=== PATIENT | female | born 1940 | race Caucasian/White ===

== ENCOUNTER → 2016-08-03 12:06 | Outpatient (CLI) | payer MEDICARE, OTHER ==
[2016-08-03 12:48] LABS: BASOPHILS 0.7 % (0.0-2.0); EOSINOPHILS 0.2 % (0-7); HEMATOCRIT 36.1 % (36.0-48.0); HEMOGLOBIN 11.8 g/dL (12-16); LYMPHOCYTES 32.9 % (15-50); MCH 30.6 pg (26.0-34.0); MCHC 32.7 g/dL (31.0-37.0); MCV 93.8 fL (80.0-100.0); MEAN PLATELET VOLUME 9.6 fL (7.4-10.4); MONOCYTES 11.9 % (2-11); NEUTROPHILS 54.3 % (40-80); PLATELET COUNT 194 10x3/uL (130-400); RBC 3.85 10x6/uL (4.00-5.40); RDW 13.3 % (11.5-14.5); WBC 4.5 10x3/uL (4.8-10.8)
[2016-08-03 13:04] LABS: ALBUMIN 3.6 g/dL (3.4-5.0); ALKALINE PHOSPHATASE 99 U/L (46-116); ALT (SGPT) 23 U/L (10-68); BILIRUBIN - TOTAL 0.27 mg/dL (0.2-1.3); CALC OSMOLALITY 278 mosm/kg (275-300); CALCIUM 9.9 mg/dL (8.5-10.1); CARBON DIOXIDE 30.3 mmol/L (21.0-32.0); CHLORIDE - SERUM 102 mmol/L (98-107); CREATININE - SERUM 0.7 mg/dL (0.6-1.3); GLUCOSE 107 mg/dL (74-106); POTASSIUM - SERUM 3.9 mmol/L (3.5-5.1); PROTEIN - SERUM 6.8 g/dL (6.4-8.2); SODIUM 140 mmol/L (136-145); UREA NITROGEN 13 mg/dL (7-18); eGFR NON AFRICAN AMERICAN 86 mL/min (90-120)
== END | disposition home or self-care (01) ==
LOC: D.LAB 09:00
PROVIDERS: Internal Medicine Gastroenterology
DX: Z51.81 Encounter for therapeutic drug level monitoring (principal); Z79.899 Other long term (current) drug therapy; K51.90 Ulcerative colitis, unspecified, without complications

== ENCOUNTER → 2016-11-02 10:21 | Outpatient (CLI) | payer MEDICARE, OTHER ==
[2016-11-02 10:47] LABS: BASOPHILS 0.7 % (0-2); EOSINOPHILS 0.4 % (0-7); HEMATOCRIT 35.9 % (36.0-48.0); HEMOGLOBIN 11.7 g/dL (12-16); IMMATURE GRANULOCYTES 0.2 % (0-5); LYMPHOCYTES 25.6 % (15-50); MCHC 32.6 g/dL (31.0-37.0); MEAN PLATELET VOLUME 9.5 fL (7.4-10.4); MONOCYTES 11.1 % (2-11); PLATELET COUNT 189 10x3/uL (130-400); RBC 3.78 10x6/uL (4.00-5.40); RDW 13.7 % (11.5-14.5); WBC 5.4 10x3/uL (4.8-10.8)
[2016-11-02 11:07] LABS: ALBUMIN 3.6 g/dL (3.4-5.0); ANION GAP 14.2 mmol/L (8-16); BILIRUBIN - TOTAL 0.36 mg/dL (0.2-1.3); CALCIUM 9.2 mg/dL (8.5-10.1); CARBON DIOXIDE 27.4 mmol/L (21.0-32.0); CREATININE - SERUM 0.8 mg/dL (0.6-1.3); POTASSIUM - SERUM 4.6 mmol/L (3.5-5.1); PROTEIN - SERUM 6.6 g/dL (6.4-8.2)
== END | disposition home or self-care (01) ==
LOC: D.LAB 09:00
PROVIDERS: Internal Medicine Gastroenterology
DX: Z51.81 Encounter for therapeutic drug level monitoring (principal); Z79.899 Other long term (current) drug therapy; K51.90 Ulcerative colitis, unspecified, without complications

== ENCOUNTER → 2016-12-08 10:51 | Outpatient (CLI) | payer MEDICARE, OTHER ==
[2016-12-08 11:36] LABS: BASOPHILS 0.9 % (0-2); EOSINOPHILS 0.5 % (0-7); HEMATOCRIT 37.3 % (36.0-48.0); HEMOGLOBIN 12.4 g/dL (12-16); LYMPHOCYTES 26.3 % (15-50); MCH 31.3 pg (26.0-34.0); MCHC 33.2 g/dL (31.0-37.0); MCV 94.2 fL (80.0-100.0); MEAN PLATELET VOLUME 9.6 fL (7.4-10.4); MONOCYTES 11.4 % (2-11); NEUTROPHILS 60.9 % (40-80); PLATELET COUNT 217 10x3/uL (130-400); RBC 3.96 10x6/uL (4.00-5.40); RDW 13.3 % (11.5-14.5); WBC 4.3 10x3/uL (4.8-10.8)
== END | disposition home or self-care (01) ==
LOC: D.LAB 09:15
PROVIDERS: Internal Medicine Gastroenterology
DX: Z51.81 Encounter for therapeutic drug level monitoring (principal); Z79.899 Other long term (current) drug therapy; K51.90 Ulcerative colitis, unspecified, without complications

== ENCOUNTER → 2017-02-01 13:06 | Outpatient (CLI) | payer MEDICARE, OTHER ==
[2017-02-01 13:25] LABS: EOSINOPHILS 0.5 % (0-7); HEMATOCRIT 37.2 % (36.0-48.0); HEMOGLOBIN 12.5 g/dL (12-16); LYMPHOCYTES 33.4 % (15-50); MCH 31.3 pg (26.0-34.0); MCHC 33.6 g/dL (31.0-37.0); MEAN PLATELET VOLUME 9.6 fL (7.4-10.4); MONOCYTES 9.5 % (2-11); NEUTROPHILS 55.6 % (40-80); PLATELET COUNT 204 10x3/uL (130-400); RDW 13.1 % (11.5-14.5); WBC 4.1 10x3/uL (4.8-10.8)
[2017-02-01 14:03] LABS: ALBUMIN 3.9 g/dL (3.4-5.0); ALKALINE PHOSPHATASE 115 U/L (46-116); ALT (SGPT) 23 U/L (10-68); BILIRUBIN - TOTAL 0.33 mg/dL (0.2-1.3); CALC OSMOLALITY 277 mosm/kg (275-300); CALCIUM 9.2 mg/dL (8.5-10.1); CARBON DIOXIDE 29.6 mmol/L (21.0-32.0); CHLORIDE - SERUM 102 mmol/L (98-107); CREATININE - SERUM 0.7 mg/dL (0.6-1.3); GLUCOSE 101 mg/dL (74-106); PROTEIN - SERUM 6.8 g/dL (6.4-8.2); SODIUM 138 mmol/L (136-145); UREA NITROGEN 17 mg/dL (7-18); eGFR NON AFRICAN AMERICAN 86 mL/min (90-120)
== END | disposition home or self-care (01) ==
LOC: D.LAB 09:00
PROVIDERS: Internal Medicine Gastroenterology
DX: K51.90 Ulcerative colitis, unspecified, without complications (principal); Z79.899 Other long term (current) drug therapy

== ENCOUNTER → 2017-05-03 14:00 | Outpatient (CLI) | payer MEDICARE, OTHER ==
[2017-05-03 14:44] LABS: BASOPHILS 0.7 % (0-2); EOSINOPHILS 0.2 % (0-7); HEMATOCRIT 36.2 % (36.0-48.0); HEMOGLOBIN 12.1 g/dL (12-16); LYMPHOCYTES 33.6 % (15-50); MCH 31.4 pg (26.0-34.0); MCHC 33.4 g/dL (31.0-37.0); MEAN PLATELET VOLUME 9.6 fL (7.4-10.4); MONOCYTES 9.8 % (2-11); NEUTROPHILS 55.7 % (40-80); PLATELET COUNT 185 10x3/uL (130-400); RBC 3.85 10x6/uL (4.00-5.40); RDW 13.1 % (11.5-14.5); WBC 4.6 10x3/uL (4.8-10.8)
[2017-05-03 14:55] LABS: ALBUMIN 3.6 g/dL (3.4-5.0); ANION GAP 8.6 mmol/L (8-16); BILIRUBIN - TOTAL 0.23 mg/dL (0.2-1.3); CALCIUM 9.6 mg/dL (8.5-10.1); CARBON DIOXIDE 30.9 mmol/L (21.0-32.0); POTASSIUM - SERUM 4.5 mmol/L (3.5-5.1); PROTEIN - SERUM 6.7 g/dL (6.4-8.2)
== END | disposition home or self-care (01) ==
LOC: D.LAB 12-08 11:15
PROVIDERS: Internal Medicine Gastroenterology
DX: Z51.81 Encounter for therapeutic drug level monitoring (principal); Z79.899 Other long term (current) drug therapy; K51.90 Ulcerative colitis, unspecified, without complications

== ENCOUNTER → 2017-08-03 12:51 | Outpatient (CLI) | payer MEDICARE, OTHER ==
[2017-08-03 13:25] LABS: ALBUMIN 3.9 g/dL (3.4-5.0); ANION GAP 11.3 mmol/L (8-16); BILIRUBIN - TOTAL 0.3 mg/dL (0.2-1.3); CALCIUM 9.9 mg/dL (8.5-10.1); CARBON DIOXIDE 30.2 mmol/L (21.0-32.0); CREATININE - SERUM 0.8 mg/dL (0.6-1.3); HEMATOCRIT 35.1 % (36.0-48.0); LYMPHOCYTES 30.1 % (15-50); MCH 31.3 pg (26.0-34.0); MCHC 34.2 g/dL (31.0-37.0); MCV 91.4 fL (80.0-100.0); PLATELET COUNT 209 10x3/uL (130-400); POTASSIUM - SERUM 4.5 mmol/L (3.5-5.1); PROTEIN - SERUM 6.9 g/dL (6.4-8.2); RBC 3.84 10x6/uL (4.00-5.40); RDW 13.4 % (11.5-14.5); WBC 4.4 10x3/uL (4.8-10.8)
== END | disposition home or self-care (01) ==
LOC: D.LAB 12:51
PROVIDERS: Internal Medicine Gastroenterology
DX: K51.90 Ulcerative colitis, unspecified, without complications (principal); Z51.81 Encounter for therapeutic drug level monitoring; Z79.1 Long term (current) use of non-steroidal anti-inflammatories (NSAID)

== ENCOUNTER → 2017-11-01 12:30 | Outpatient (CLI) | payer MEDICARE, OTHER ==
[2017-11-01 12:49] LABS: BASOPHILS 0.6 % (0-2); EOSINOPHILS 0.2 % (0-7); HEMATOCRIT 36.6 % (36.0-48.0); HEMOGLOBIN 12.1 g/dL (12-16); IMMATURE GRANULOCYTES 0.2 % (0-5); LYMPHOCYTES 27.8 % (15-50); MCHC 33.1 g/dL (31.0-37.0); MCV 93.8 fL (80.0-100.0); MEAN PLATELET VOLUME 9.4 fL (7.4-10.4); NEUTROPHILS 57.2 % (40-80); PLATELET COUNT 208 10x3/uL (130-400); RDW 13.3 % (11.5-14.5); WBC 5.4 10x3/uL (4.8-10.8)
[2017-11-01 13:02] LABS: ALBUMIN 3.7 g/dL (3.4-5.0); ANION GAP 11.7 mmol/L (8-16); BILIRUBIN - TOTAL 0.3 mg/dL (0.2-1.3); CALCIUM 9.3 mg/dL (8.5-10.1); CARBON DIOXIDE 26.8 mmol/L (21.0-32.0); CREATININE - SERUM 0.8 mg/dL (0.6-1.3); POTASSIUM - SERUM 4.5 mmol/L (3.5-5.1)
== END | disposition home or self-care (01) ==
LOC: D.LAB 08-03 13:00
PROVIDERS: Internal Medicine Gastroenterology
DX: K51.90 Ulcerative colitis, unspecified, without complications (principal); Z51.81 Encounter for therapeutic drug level monitoring; Z79.1 Long term (current) use of non-steroidal anti-inflammatories (NSAID)

== ENCOUNTER → 2017-11-24 13:43 | Outpatient (CLI) | payer MEDICARE, OTHER ==
[2017-11-24 14:08] LABS: EOSINOPHILS 0.3 % (0-7); HEMATOCRIT 37.3 % (36.0-48.0); HEMOGLOBIN 12.6 g/dL (12-16); IMMATURE GRANULOCYTES 0.2 % (0-5); LYMPHOCYTES 27.8 % (15-50); MCH 31.3 pg (26.0-34.0); MCHC 33.8 g/dL (31.0-37.0); MCV 92.8 fL (80.0-100.0); MEAN PLATELET VOLUME 9.4 fL (7.4-10.4); NEUTROPHILS 56.7 % (40-80); PLATELET COUNT 229 10x3/uL (130-400); RBC 4.02 10x6/uL (4.00-5.40); RDW 13.2 % (11.5-14.5); WBC 5.8 10x3/uL (4.8-10.8)
== END | disposition home or self-care (01) ==
LOC: D.LAB 13:43
PROVIDERS: Internal Medicine Gastroenterology
DX: K51.90 Ulcerative colitis, unspecified, without complications (principal); Z51.81 Encounter for therapeutic drug level monitoring; Z79.899 Other long term (current) drug therapy

== ENCOUNTER → 2017-12-08 12:57 | Outpatient (CLI) | payer MEDICARE, OTHER ==
[2017-12-08 13:27] LABS: BASOPHILS 0.5 % (0-2); EOSINOPHILS 0 % (0-7); HEMATOCRIT 35.7 % (36.0-48.0); HEMOGLOBIN 11.7 g/dL (12-16); IMMATURE GRANULOCYTES 0.2 % (0-5); LYMPHOCYTES 23.8 % (15-50); MCH 31.2 pg (26.0-34.0); MCHC 32.8 g/dL (31.0-37.0); MCV 95.2 fL (80.0-100.0); MEAN PLATELET VOLUME 8.8 fL (7.4-10.4); MONOCYTES 7.6 % (2-11); NEUTROPHILS 67.9 % (40-80); PLATELET COUNT 203 10x3/uL (130-400); RBC 3.75 10x6/uL (4.00-5.40); RDW 12.8 % (11.5-14.5); WBC 5.6 10x3/uL (4.8-10.8)
== END | disposition home or self-care (01) ==
LOC: D.LAB 10:00
PROVIDERS: Internal Medicine Gastroenterology
DX: K51.90 Ulcerative colitis, unspecified, without complications (principal); Z51.81 Encounter for therapeutic drug level monitoring; Z79.899 Other long term (current) drug therapy

== ENCOUNTER → 2018-01-03 13:07 | Outpatient (CLI) | payer MEDICARE, OTHER ==
[2018-01-03 13:46] LABS: BASOPHILS 1.1 % (0-2); EOSINOPHILS 0.2 % (0-7); HEMOGLOBIN 11.7 g/dL (12-16); LYMPHOCYTES 27.8 % (15-50); MCH 31.7 pg (26.0-34.0); MCHC 33.4 g/dL (31.0-37.0); MCV 94.9 fL (80.0-100.0); MEAN PLATELET VOLUME 9.2 fL (7.4-10.4); NEUTROPHILS 60.9 % (40-80); PLATELET COUNT 201 10x3/uL (130-400); RBC 3.69 10x6/uL (4.00-5.40); RDW 13.6 % (11.5-14.5); WBC 4.7 10x3/uL (4.8-10.8)
== END | disposition home or self-care (01) ==
LOC: D.LAB 10:15
PROVIDERS: Internal Medicine Gastroenterology
DX: K51.90 Ulcerative colitis, unspecified, without complications (principal); Z51.81 Encounter for therapeutic drug level monitoring; Z79.899 Other long term (current) drug therapy

== ENCOUNTER → 2018-01-31 13:51 | Outpatient (CLI) | payer MEDICARE, OTHER ==
[~2018-01-31 13:51] MED LIST: BENADRYL25 MG PO; CALCIUM 600+D T1 TA1 PO; FOLIC ACID0.8 MG PO; GLUCOSAMINE & C1 CAP PO; MERCAPTOPURINE PO; NORCO 7.5/325 T1 TA1 PO; OMEPRAZOLE20 M1 PO; SULFAZINE EC500 MG PO; VITAMIN B-121000 MCG PO
[2018-01-31 14:48] LABS: BASOPHILS 0.7 % (0-2); EOSINOPHILS 0.5 % (0-7); HEMATOCRIT 34.8 % (36.0-48.0); HEMOGLOBIN 11.9 g/dL (12-16); LYMPHOCYTES 28.3 % (15-50); MCH 32.1 pg (26.0-34.0); MCHC 34.2 g/dL (31.0-37.0); MCV 93.8 fL (80.0-100.0); MEAN PLATELET VOLUME 9.4 fL (7.4-10.4); MONOCYTES 10.2 % (2-11); NEUTROPHILS 60.3 % (40-80); PLATELET COUNT 206 10x3/uL (130-400); RBC 3.71 10x6/uL (4.00-5.40); RDW 14.1 % (11.5-14.5); WBC 4.2 10x3/uL (4.8-10.8)
[2018-01-31 15:00] LABS: ALBUMIN 3.7 g/dL (3.4-5.0); ANION GAP 11.1 mmol/L (8-16); BILIRUBIN - TOTAL 0.33 mg/dL (0.2-1.3); CREATININE - SERUM 0.9 mg/dL (0.6-1.3); POTASSIUM - SERUM 4.1 mmol/L (3.5-5.1)
[2018-03-16 14:00] VITALS: BMI 25.6
== END | disposition home or self-care (01) ==
LOC: D.LAB 13:51
PROVIDERS: Internal Medicine Gastroenterology
DX: K51.90 Ulcerative colitis, unspecified, without complications (principal); Z51.81 Encounter for therapeutic drug level monitoring; Z79.1 Long term (current) use of non-steroidal anti-inflammatories (NSAID)

== ENCOUNTER → 2018-03-03 11:54 | Outpatient (CLI) | payer MEDICARE, OTHER ==
[2018-03-03 12:15] LABS: BASOPHILS 1.1 % (0-2); EOSINOPHILS 0.6 % (0-7); HEMATOCRIT 34.5 % (36.0-48.0); HEMOGLOBIN 11.8 g/dL (12-16); IMMATURE GRANULOCYTES 0.3 % (0-5); LYMPHOCYTES 29.8 % (15-50); MCH 32.4 pg (26.0-34.0); MCHC 34.2 g/dL (31.0-37.0); MCV 94.8 fL (80.0-100.0); MEAN PLATELET VOLUME 9.2 fL (7.4-10.4); NEUTROPHILS 57.2 % (40-80); PLATELET COUNT 216 10x3/uL (130-400); RBC 3.64 10x6/uL (4.00-5.40); RDW 14.4 % (11.5-14.5); WBC 3.6 10x3/uL (4.8-10.8)
[2018-03-16 14:00] VITALS: BMI 25.6
== END | disposition home or self-care (01) ==
LOC: D.LAB 11:00
PROVIDERS: Internal Medicine Gastroenterology
DX: K51.90 Ulcerative colitis, unspecified, without complications (principal); Z51.81 Encounter for therapeutic drug level monitoring; Z79.899 Other long term (current) drug therapy

== ENCOUNTER 2018-03-12 18:51 | Inpatient (IN) | payer MEDICARE, OTHER ==
[~2018-03-12] VITALS: Ht 167.6 cm; Wt 72.1 kg
[2018-03-12 20:00] VITALS: BP 197/87
[2018-03-12 20:10] LABS: BASOPHILS 0.4 % (0-2); EOSINOPHILS 0.1 % (0-7); HEMATOCRIT 34.2 % (36.0-48.0); HEMOGLOBIN 11.6 g/dL (12-16); IMMATURE GRANULOCYTES 0.3 % (0-5); LYMPHOCYTES 12.6 % (15-50); MCH 32.4 pg (26.0-34.0); MCHC 33.9 g/dL (31.0-37.0); MCV 95.5 fL (80.0-100.0); MEAN PLATELET VOLUME 9.3 fL (7.4-10.4); MONOCYTES 6.6 % (2-11); PLATELET COUNT 209 10x3/uL (130-400); RBC 3.58 10x6/uL (4.00-5.40); RDW 14.3 % (11.5-14.5); WBC 6.8 10x3/uL (4.8-10.8)
[2018-03-12 20:18] LABS: PROTIME 12.8 SECONDS (11.6-15.0)
[2018-03-12 20:27] LABS: ALBUMIN 3.9 g/dL (3.4-5.0); ANION GAP 8.7 mmol/L (8-16); BILIRUBIN - TOTAL 0.45 mg/dL (0.2-1.3); CALCIUM 9.4 mg/dL (8.5-10.1); CARBON DIOXIDE 29.4 mmol/L (21.0-32.0); CREATININE - SERUM 0.9 mg/dL (0.6-1.3); POTASSIUM - SERUM 4.1 mmol/L (3.5-5.1); PROTEIN - SERUM 6.8 g/dL (6.4-8.2)
[2018-03-12 21:00] VITALS: BP 178/77
[2018-03-12 21:41] LABS: APPEARANCE CLEAR (CLEAR); BILIRUBIN NEGATIVE (NEGATIVE); COLOR STRAW (YELLOW); GLUCOSE NEGATIVE (NEGATIVE); KETONE NEGATIVE (NEGATIVE); NITRITE NEGATIVE (NEGATIVE); PROTEIN NEGATIVE (NEGATIVE); UROBILINOGEN NORMAL (NORMAL)
[2018-03-12 22:00] VITALS: BP 113/53
[2018-03-12] MEDS ORDERED: SULFAZINE EC500 MG PO (23:00)
[2018-03-12] MEDS ORDERED: MERCAPTOPURINE PO (23:01)
[2018-03-12] MEDS ORDERED: CALCIUM 600+D T1 TA1 PO (23:04)
[2018-03-12] MEDS ORDERED: FOLIC ACID0.8 MG PO (23:04)
[2018-03-12] MEDS ORDERED: VITAMIN B-121000 MCG PO (23:05)
[2018-03-12] MEDS ORDERED: GLUCOSAMINE & C1 CAP PO (23:06)
[2018-03-12] MEDS ORDERED: OMEPRAZOLE20 M1 PO (23:08)
[2018-03-12] MEDS ORDERED: BENADRYL25 MG PO (23:10)
[2018-03-12 23:11] VITALS: BP 148/62; BMI 25.7
[2018-03-13] VITALS (10 sets, daily range): BP systolic 115–169; BP diastolic 55–100; Ht 167.6 cm; Wt 72.1 kg
[2018-03-13 05:11] LABS: INR 1.02 (0.85-1.17)
[2018-03-13 05:12] LABS: ANION GAP 10.4 mmol/L (8-16); CALCIUM 8.5 mg/dL (8.5-10.1); CARBON DIOXIDE 26.6 mmol/L (21.0-32.0); CREATININE - SERUM 0.8 mg/dL (0.6-1.3)
[2018-03-13 05:13] LABS: BASOPHILS 0.2 % (0-2); EOSINOPHILS 0 % (0-7); HEMATOCRIT 30.9 % (36.0-48.0); HEMOGLOBIN 10.3 g/dL (12-16); MCH 31.7 pg (26.0-34.0); MCHC 33.3 g/dL (31.0-37.0); MCV 95.1 fL (80.0-100.0); MEAN PLATELET VOLUME 9.5 fL (7.4-10.4); MONOCYTES 9.7 % (2-11); NEUTROPHILS 71.1 % (40-80); PLATELET COUNT 196 10x3/uL (130-400); RBC 3.25 10x6/uL (4.00-5.40); RDW 14.4 % (11.5-14.5)
[2018-03-13 05:14] LABS: WBC 4.8 10x3/uL (4.8-10.8)
[2018-03-13 15:55] LABS: BASOPHILS 0.2 % (0-2); EOSINOPHILS 0.1 % (0-7); HEMATOCRIT 30.8 % (36.0-48.0); HEMOGLOBIN 10.4 g/dL (12-16); IMMATURE GRANULOCYTES 0.2 % (0-5); LYMPHOCYTES 5.6 % (15-50); MCH 32.3 pg (26.0-34.0); MCHC 33.8 g/dL (31.0-37.0); MCV 95.7 fL (80.0-100.0); MEAN PLATELET VOLUME 9.1 fL (7.4-10.4); MONOCYTES 7.8 % (2-11); NEUTROPHILS 86.1 % (40-80); PLATELET COUNT 166 10x3/uL (130-400); RBC 3.22 10x6/uL (4.00-5.40); RDW 14.3 % (11.5-14.5)
[2018-03-13 15:59] LABS: WBC 8.8 10x3/uL (4.8-10.8)
[2018-03-13 16:07] LABS: CALC OSMOLALITY 272 mosm/kg (275-300); CALCIUM 8.2 mg/dL (8.5-10.1); CARBON DIOXIDE 27.9 mmol/L (21.0-32.0); CHLORIDE - SERUM 104 mmol/L (98-107); CREATININE - SERUM 0.7 mg/dL (0.6-1.3); GLUCOSE 121 mg/dL (74-106); POTASSIUM - SERUM 3.8 mmol/L (3.5-5.1); SODIUM 136 mmol/L (136-145); UREA NITROGEN 12 mg/dL (7-18); eGFR NON AFRICAN AMERICAN 86 mL/min (90-120)
[2018-03-14 03:30] VITALS: BP 142/65
[2018-03-14 04:41] LABS: BASOPHILS 0.6 % (0-2); EOSINOPHILS 0.2 % (0-7); HEMOGLOBIN 9.2 g/dL (12-16); IMMATURE GRANULOCYTES 0.2 % (0-5); LYMPHOCYTES 13.1 % (15-50); MCH 32.6 pg (26.0-34.0); MCHC 34.1 g/dL (31.0-37.0); MCV 95.7 fL (80.0-100.0); MEAN PLATELET VOLUME 8.9 fL (7.4-10.4); MONOCYTES 12.1 % (2-11); NEUTROPHILS 73.8 % (40-80); PLATELET COUNT 139 10x3/uL (130-400); RBC 2.82 10x6/uL (4.00-5.40); RDW 14.5 % (11.5-14.5)
[2018-03-14 04:55] LABS: CALC OSMOLALITY 272 mosm/kg (275-300); CALCIUM 8.1 mg/dL (8.5-10.1); CARBON DIOXIDE 26.6 mmol/L (21.0-32.0); CHLORIDE - SERUM 103 mmol/L (98-107); CREATININE - SERUM 0.6 mg/dL (0.6-1.3); GLUCOSE 76 mg/dL (74-106); POTASSIUM - SERUM 3.7 mmol/L (3.5-5.1); SODIUM 137 mmol/L (136-145); UREA NITROGEN 12 mg/dL (7-18); eGFR NON AFRICAN AMERICAN > 90 mL/min (90-120)
[2018-03-14 09:04] VITALS: BP 110/70
[2018-03-14 13:13] VITALS: BP 148/59
[2018-03-14 18:34] VITALS: BP 149/55
[2018-03-14 20:00] VITALS: BP 139/57
[2018-03-15 04:16] VITALS: BP 144/62
[2018-03-15 09:49] VITALS: BP 158/68
[2018-03-15 12:45] VITALS: BP 148/78
[2018-03-15] MEDS ORDERED: NORCO 7.5/325 T1 TA1 PO (19:05)
== END 2018-03-15 19:11 | DRG 481 ==
LOC: D.ER 18:51 → D.MS 22:04 → D.EDHOLD 22:04 → D.MS 22:15
PROVIDERS: Family Medicine; Orthopaedic Surgery
PROC: 0QH936Z Insertion of Intramedullary Internal Fixation Device into Left Femoral Shaft, Percutaneous Approach (ICD-10-PCS; principal; 2018-03-13 12:00)
DX: S72.302A Unspecified fracture of shaft of left femur, initial encounter for closed fracture (principal); K51.90 Ulcerative colitis, unspecified, without complications; S72.122A Displaced fracture of lesser trochanter of left femur, initial encounter for closed fracture; W01.0XXA Fall on same level from slipping, tripping and stumbling without subsequent striking against object, initial encounter

== ENCOUNTER 2018-03-15 19:47 | Inpatient (IN) | payer MEDICARE, OTHER ==
[~2018-03-15] VITALS: Ht 167.6 cm; Wt 72.1 kg
--- NOTE | ~2018-03-15 | RHP ---
PATIENT: MISHA BENAVIDEZ MEDICAL RECORD: [id number] ACCOUNT: [id number] LOCATION:[id number] : 40 ADMISSION DATE: 03/15/18 REHABILITATION HISTORY AND PHYSICAL EXAMINATION POST ADMISSION PHYSICIAN EXAMINATION POST-ADMISSION PHYSICAL EXAMINATION AND HISTORY AND PHYSICAL DATE OF ADMISSION: 03/15/2018 ADMITTING DIAGNOSES: Left nondisplaced fracture of the proximal femoral diaphysis. HISTORY OF PRESENT ILLNESS: The patient is a 78-year-old female patient admitted to the rehab with a working diagnosis of left nondisplaced fracture of the proximal femoral diaphysis after a fall at home. She tripped over a bag. She fell on her left side. She had immediate pain in her left leg and inability to ambulate. She did hit her head, but denied loss of consciousness. She had an obvious deformity. She had pain over her left groin and trochanteric bursa. CT showed a nondisplaced fracture of the proximal femoral diaphysis and subtle intertrochanteric extension involving the lesser trochanter. She had [id number] osteoarthritis of the knee also, worse in the medial compartment with a [id number] knee effusion. Ortho was consulted. She went to the OR on 03/13/2018 for left trochanteric femoral nail with cross locking. Postop was complicated by hypoxia with a sat of 87%, blood-loss anemia, low-grade temperature. Previously, she was independent with ADLs and mobility. She lives alone, drives and cares for her 2 acre lot. Currently, she is set up for mod-to-max assist for ADLs and mobility. She is on 4 L of O2 continuously to maintain a sat of 93%. She has ambulated 4 feet with PT at 40% assist with rolling walker. She tires easily and becomes fatigued. Barriers to discharge include that she lives alone. She has got 15 stairs to climb to enter her home. She has had recent falls. On continuous O2. She plans to hopefully regain her strength and return back to home. Comorbidities in this patient include status post left trochanteric femoral nail, large left hip joint effusion, left knee joint effusion, hypoxia, blood-loss anemia, recent fall, ulcerative colitis with long-term usage of steroids. She has got a history of osteoarthritis and osteopenia. PAST MEDICAL HISTORY: Significant for hearing aids and uses glasses, colitis. PAST SURGICAL HISTORY: Includes stapedectomy in 2004. ALLERGIES: No known drug allergies. CURRENT MEDICATIONS: Include Protonix 40 mg daily. She is on Osteo Bi-Flex 1 cap daily, B12 at 5000 mcg daily. She is on calcium with D 600 mg daily, polyethylene glycol 17 grams at bedtime. She is on sulfasalazine 1000 mg t.i.d., Benadryl 50 mg every 4 hours p.r.n., and Worth 7.5/325 one every 4-6 hours as needed for pain. HABITS: No current alcohol or tobacco use. FAMILY HISTORY: Noncontributory. SOCIAL HISTORY: The patient hopes to return back home and get back to her prior HISTORY AND PHYSICAL [id number] MISHA BENAVIDEZ level of functioning. REVIEW OF SYSTEMS: GENERAL: Does complain of weakness. HEENT: Denies cold, cough, or congestion. CARDIOVASCULAR: Denies chest pain. PHYSICAL EXAMINATION: VITAL SIGNS: Stable, afebrile. GENERAL: An elderly female, in no acute distress upon exam. HEENT: Normocephalic and atraumatic. Mucosa moist. NECK: Supple. No lymphadenopathy. LUNGS: Clear at this time. HEART: Regular rate and rhythm. ABDOMEN: Benign. EXTREMITIES: Postop care appears normal. She has normal swelling. NEUROLOGIC: Does have noted weakness. LABORATORY DATA: Her white count is 3.3, H&H of 8.5 and 24.1, and platelet count is 161. Sodium 135, potassium 3.1, BUN and creatinine of 7 and 0.5, and blood sugar was noted to be 95. UA did show trace blood, but negative for nitrites and leukocyte esterase. ASSESSMENT: This is a 78-year-old female patient admitted to the rehab with a working diagnosis of left femur fracture. The patient has potential to make improvement. We will institute the following multidisciplinary therapies including, but not limited to physical, occupational, respiratory, speech, nutritional services, prosthetics, and orthotics. Given her complex medical condition and risks for more complications, rehabilitation services cannot be provided at a low level of care such as a jail facility. PLAN: 1. Admit to [facility] for intensive inpatient therapy to include the following disciplines: A. Physical therapy to improve gait, all transfer skills and bed mobility to a modified independent level. B. Occupational therapy to improve activities of daily living to a modified independent level. C. Case management to assist with discharge planning and placement options. D. Nutrition to assist with nutritional needs. E. Rehabilitation nursing to assist in monitoring the patient's underlying medical conditions and to assist with any type of bowel or bladder management. 2. The patient's current medications and medical care will be continued. 3. The patient will be placed on standard fall precautions. 4. The patient's estimated length of stay is approximately 7-10 days. 5. I am going to go ahead and give her a couple units of packed red blood cells, replace her potassium. We will work on getting her ambulating and doing well, and I will follow up at lunch today with our care team and case management. TRANSINT:[id number] Voice Confirmation ID: [id number] DOCUMENT ID: [id number] HUMAIRA notes whether there has been none or any medical/functional change since admission: HISTORY AND PHYSICAL [id number] MISHA BENAVIDEZ - No change since preadmission screen. HUMAIRA attests patient continues to be appropriate for IRF: - Continues to be appropriate. MELONIE STOKES MD at [id number] CC: [id number] DICTATION DATE: 03/16/18 0847 [employer]: 03/16/18 0927 ADM IN [place] [id number] [place] [address]
[2018-03-15 19:30] VITALS: BP 147/86
[2018-03-16] VITALS (8 sets, daily range): BP systolic 146–168; BP diastolic 65–86; Ht 167.6 cm; Wt 72.1 kg
[2018-03-16 04:14] LABS: APPEARANCE CLEAR (CLEAR); BILIRUBIN NEGATIVE (NEGATIVE); COLOR YELLOW (YELLOW); GLUCOSE NEGATIVE (NEGATIVE); KETONE MODERATE mg/dL (NEGATIVE); NITRITE NEGATIVE (NEGATIVE); PROTEIN NEGATIVE (NEGATIVE); UROBILINOGEN NORMAL (NORMAL)
[2018-03-16 04:15] LABS: BACTERIA FEW /hpf (NONE SEEN); EPITHELIAL CELLS 0-5 /hpf (0-5); MUCUS <1+ /lpf (NONE SEEN); RED CELLS - URINE 0-5 /hpf (0-5); WHITE CELLS - URINE 0-5 /hpf (0-5)
[2018-03-16 07:19] LABS: BASOPHILS 0.9 % (0-2); EOSINOPHILS 0.3 % (0-7); HEMATOCRIT 24.1 % (36.0-48.0); HEMOGLOBIN 8.5 g/dL (12-16); IMMATURE GRANULOCYTES 0.3 % (0-5); LYMPHOCYTES 15.6 % (15-50); MCH 32.7 pg (26.0-34.0); MCHC 35.3 g/dL (31.0-37.0); MCV 92.7 fL (80.0-100.0); MEAN PLATELET VOLUME 9.6 fL (7.4-10.4); MONOCYTES 13.1 % (2-11); NEUTROPHILS 69.8 % (40-80); PLATELET COUNT 161 10x3/uL (130-400); RDW 14.6 % (11.5-14.5); WBC 3.3 10x3/uL (4.8-10.8)
[2018-03-16 07:46] LABS: CALC OSMOLALITY 267 mosm/kg (275-300); CALCIUM 8.2 mg/dL (8.5-10.1); CARBON DIOXIDE 29.2 mmol/L (21.0-32.0); CHLORIDE - SERUM 101 mmol/L (98-107); CREATININE - SERUM 0.5 mg/dL (0.6-1.3); GLUCOSE 95 mg/dL (74-106); POTASSIUM - SERUM 3.1 mmol/L (3.5-5.1); SODIUM 135 mmol/L (136-145); UREA NITROGEN 7 mg/dL (7-18); eGFR NON AFRICAN AMERICAN > 90 mL/min (90-120)
[2018-03-17 08:24] VITALS: BP 176/73
[2018-03-17 19:00] VITALS: BP 138/69
[2018-03-18 07:19] LABS: CALC OSMOLALITY 268 mosm/kg (275-300); CALCIUM 8.7 mg/dL (8.5-10.1); CARBON DIOXIDE 28.9 mmol/L (21.0-32.0); CHLORIDE - SERUM 101 mmol/L (98-107); CREATININE - SERUM 0.6 mg/dL (0.6-1.3); GLUCOSE 104 mg/dL (74-106); POTASSIUM - SERUM 3.8 mmol/L (3.5-5.1); SODIUM 134 mmol/L (136-145); UREA NITROGEN 14 mg/dL (7-18); eGFR NON AFRICAN AMERICAN > 90 mL/min (90-120)
[2018-03-18 07:34] LABS: LYMPHOCYTES 20.2 % (15-50); MCH 32.3 pg (26.0-34.0); MCHC 35.6 g/dL (31.0-37.0); MEAN PLATELET VOLUME 9.2 fL (7.4-10.4); NEUTROPHILS 63.1 % (40-80); RDW 15.3 % (11.5-14.5); WBC 3.5 10x3/uL (4.8-10.8)
[2018-03-18 07:45] LABS: HEMATOCRIT 31.7 % (36.0-48.0); HEMOGLOBIN 11.3 g/dL (12-16); MCV 90.6 fL (80.0-100.0); PLATELET COUNT 218 10x3/uL (130-400)
[2018-03-18 08:00] VITALS: BP 150/73
[2018-03-18 19:00] VITALS: BP 153/66
[2018-03-19 08:00] VITALS: BP 157/84
[2018-03-19 21:00] VITALS: BP 153/63
[2018-03-20 08:00] VITALS: BP 139/72
[2018-03-20 19:45] VITALS: BP 145/67
[2018-03-21 06:27] LABS: BASOPHILS 1.2 % (0-2); EOSINOPHILS 0.2 % (0-7); HEMATOCRIT 32.6 % (36.0-48.0); HEMOGLOBIN 10.9 g/dL (12-16); IMMATURE GRANULOCYTES 0.2 % (0-5); LYMPHOCYTES 20.8 % (15-50); MCH 31.3 pg (26.0-34.0); MCHC 33.4 g/dL (31.0-37.0); MCV 93.7 fL (80.0-100.0); MEAN PLATELET VOLUME 9.4 fL (7.4-10.4); MONOCYTES 17.1 % (2-11); NEUTROPHILS 60.5 % (40-80); RBC 3.48 10x6/uL (4.00-5.40); RDW 14.9 % (11.5-14.5)
[2018-03-21 06:41] LABS: CALC OSMOLALITY 267 mosm/kg (275-300); CALCIUM 8.7 mg/dL (8.5-10.1); CARBON DIOXIDE 28.6 mmol/L (21.0-32.0); CHLORIDE - SERUM 100 mmol/L (98-107); CREATININE - SERUM 0.7 mg/dL (0.6-1.3); GLUCOSE 97 mg/dL (74-106); PLATELET COUNT 267 10x3/uL (130-400); POTASSIUM - SERUM 4.1 mmol/L (3.5-5.1); SODIUM 134 mmol/L (136-145); UREA NITROGEN 12 mg/dL (7-18); eGFR NON AFRICAN AMERICAN 86 mL/min (90-120)
[2018-03-21 07:48] VITALS: BP 152/75
[2018-03-21 19:00] VITALS: BP 156/75
[2018-03-22 08:57] VITALS: BP 144/72
[2018-03-22 18:07] VITALS: BP 143/70
[2018-03-22 19:00] VITALS: BP 143/70
[2018-03-23 08:00] VITALS: BP 144/75
[2018-03-23 09:36] LABS: BASOPHILS 1.2 % (0-2); EOSINOPHILS 0.2 % (0-7); HEMATOCRIT 34.8 % (36.0-48.0); HEMOGLOBIN 11.6 g/dL (12-16); IMMATURE GRANULOCYTES 0.2 % (0-5); LYMPHOCYTES 14.7 % (15-50); MCH 31.2 pg (26.0-34.0); MCHC 33.3 g/dL (31.0-37.0); MCV 93.5 fL (80.0-100.0); MEAN PLATELET VOLUME 8.9 fL (7.4-10.4); MONOCYTES 15.8 % (2-11); NEUTROPHILS 67.9 % (40-80); PLATELET COUNT 309 10x3/uL (130-400); RBC 3.72 10x6/uL (4.00-5.40); RDW 14.7 % (11.5-14.5); WBC 4.2 10x3/uL (4.8-10.8)
[2018-03-23 09:47] LABS: CALC OSMOLALITY 265 mosm/kg (275-300); CARBON DIOXIDE 29.2 mmol/L (21.0-32.0); CHLORIDE - SERUM 98 mmol/L (98-107); CREATININE - SERUM 0.7 mg/dL (0.6-1.3); GLUCOSE 95 mg/dL (74-106); POTASSIUM - SERUM 4.3 mmol/L (3.5-5.1); SODIUM 132 mmol/L (136-145); UREA NITROGEN 15 mg/dL (7-18); URIC ACID 2.7 mg/dL (2.6-7.2); eGFR NON AFRICAN AMERICAN 86 mL/min (90-120)
[2018-03-23 19:30] VITALS: BP 129/78
[2018-03-24 08:19] VITALS: BP 144/72
[2018-03-24 19:00] VITALS: BP 147/71
[2018-03-25 08:05] VITALS: BP 149/78
[2018-03-26 08:00] VITALS: BP 140/69
[2018-03-26 20:00] VITALS: BP 118/70
[2018-03-27 08:00] VITALS: BP 157/78
[2018-03-27 19:23] VITALS: BP 155/69
[2018-03-28 08:20] VITALS: BP 144/82
[2018-03-28 09:17] LABS: BASOPHILS 1.5 % (0-2); EOSINOPHILS 0.2 % (0-7); HEMATOCRIT 37.7 % (36.0-48.0); HEMOGLOBIN 12.6 g/dL (12-16); IMMATURE GRANULOCYTES 0.4 % (0-5); LYMPHOCYTES 19.7 % (15-50); MCH 31.7 pg (26.0-34.0); MCHC 33.4 g/dL (31.0-37.0); MEAN PLATELET VOLUME 8.9 fL (7.4-10.4); MONOCYTES 12.1 % (2-11); NEUTROPHILS 66.1 % (40-80); RBC 3.97 10x6/uL (4.00-5.40); RDW 14.7 % (11.5-14.5); WBC 4.6 10x3/uL (4.8-10.8)
[2018-03-28 09:23] LABS: PLATELET COUNT 433 10x3/uL (130-400)
[2018-03-28 09:37] LABS: ANION GAP 13.9 mmol/L (8-16); CALCIUM 10.5 mg/dL (8.5-10.1); CARBON DIOXIDE 27.1 mmol/L (21.0-32.0); CREATININE - SERUM 0.9 mg/dL (0.6-1.3)
[2018-03-28 19:00] VITALS: BP 153/83
[2018-03-29 08:00] VITALS: BP 123/57
[2018-03-29 19:35] VITALS: BP 157/66
[2018-03-30 06:58] LABS: BASOPHILS 2.4 % (0-2); EOSINOPHILS 0.6 % (0-7); HEMATOCRIT 33.2 % (36.0-48.0); HEMOGLOBIN 11.2 g/dL (12-16); IMMATURE GRANULOCYTES 0.3 % (0-5); LYMPHOCYTES 23.5 % (15-50); MCH 31.5 pg (26.0-34.0); MCHC 33.7 g/dL (31.0-37.0); MCV 93.5 fL (80.0-100.0); MEAN PLATELET VOLUME 8.7 fL (7.4-10.4); MONOCYTES 14.9 % (2-11); NEUTROPHILS 58.3 % (40-80); RBC 3.55 10x6/uL (4.00-5.40); RDW 14.7 % (11.5-14.5)
[2018-03-30 06:59] LABS: PLATELET COUNT 305 10x3/uL (130-400); WBC 3.3 10x3/uL (4.8-10.8)
[2018-03-30 07:26] LABS: CALC OSMOLALITY 270 mosm/kg (275-300); CALCIUM 10.2 mg/dL (8.5-10.1); CHLORIDE - SERUM 100 mmol/L (98-107); CREATININE - SERUM 0.6 mg/dL (0.6-1.3); GLUCOSE 95 mg/dL (74-106); POTASSIUM - SERUM 4.3 mmol/L (3.5-5.1); SODIUM 135 mmol/L (136-145); UREA NITROGEN 15 mg/dL (7-18); eGFR NON AFRICAN AMERICAN > 90 mL/min (90-120)
[2018-03-30 08:00] VITALS: BP 136/69
[2018-03-30 19:00] VITALS: BP 160/71
[2018-03-31 08:00] VITALS: BP 138/72
[2018-03-31] MEDS ORDERED: NORCO 7.5/325 T1 TA1 PO (08:48)
== END 2018-03-31 12:41 | disposition home health service (06) | DRG 560 ==
LOC: D.REHAB 19:47
PROVIDERS: Emergency Medicine
DX: S72.302D Unspecified fracture of shaft of left femur, subsequent encounter for closed fracture with routine healing (principal); K51.90 Ulcerative colitis, unspecified, without complications; Z47.89 Encounter for other orthopedic aftercare; M25.452 Effusion, left hip; M25.462 Effusion, left knee; R09.02 Hypoxemia; D50.0 Iron deficiency anemia secondary to blood loss (chronic); M19.90 Unspecified osteoarthritis, unspecified site; W01.0XXD Fall on same level from slipping, tripping and stumbling without subsequent striking against object, subsequent encounter

== ENCOUNTER → 2018-04-04 13:08 | Outpatient (CLI) | payer MEDICARE, OTHER ==
[2018-03-16 14:00] VITALS: BMI 25.6
[2018-04-04 13:44] LABS: BASOPHILS 1.6 % (0-2); EOSINOPHILS 0.5 % (0-7); HEMATOCRIT 35.2 % (36.0-48.0); HEMOGLOBIN 11.7 g/dL (12-16); IMMATURE GRANULOCYTES 0.3 % (0-5); LYMPHOCYTES 23.8 % (15-50); MCH 31.5 pg (26.0-34.0); MCHC 33.2 g/dL (31.0-37.0); MCV 94.9 fL (80.0-100.0); MEAN PLATELET VOLUME 9.2 fL (7.4-10.4); MONOCYTES 11.4 % (2-11); NEUTROPHILS 62.4 % (40-80); PLATELET COUNT 233 10x3/uL (130-400); RBC 3.71 10x6/uL (4.00-5.40); RDW 14.9 % (11.5-14.5); WBC 3.9 10x3/uL (4.8-10.8)
== END | disposition home or self-care (01) ==
LOC: D.LAB 10:00
PROVIDERS: Internal Medicine Gastroenterology
DX: K51.90 Ulcerative colitis, unspecified, without complications (principal); Z51.81 Encounter for therapeutic drug level monitoring; Z79.899 Other long term (current) drug therapy

== ENCOUNTER → 2018-05-04 12:13 | Outpatient (CLI) | payer MEDICARE, OTHER ==
[2018-03-16 14:00] VITALS: BMI 25.6
[2018-05-04 13:00] LABS: BASOPHILS 1.3 % (0-2); EOSINOPHILS 0.3 % (0-7); HEMATOCRIT 34.1 % (36.0-48.0); HEMOGLOBIN 11.6 g/dL (12-16); LYMPHOCYTES 31.8 % (15-50); MCH 32.4 pg (26.0-34.0); MCV 95.3 fL (80.0-100.0); MEAN PLATELET VOLUME 9.7 fL (7.4-10.4); MONOCYTES 12.2 % (2-11); NEUTROPHILS 54.4 % (40-80); PLATELET COUNT 249 10x3/uL (130-400); RBC 3.58 10x6/uL (4.00-5.40); RDW 15.1 % (11.5-14.5); WBC 3.8 10x3/uL (4.8-10.8)
[2018-05-04 13:14] LABS: ALBUMIN 4.2 g/dL (3.4-5.0); BILIRUBIN - TOTAL 0.55 mg/dL (0.2-1.3); CALCIUM 11.5 mg/dL (8.5-10.1); CREATININE - SERUM 0.8 mg/dL (0.6-1.3); PROTEIN - SERUM 6.8 g/dL (6.4-8.2)
== END | disposition home or self-care (01) ==
LOC: D.LAB 12:13
PROVIDERS: Internal Medicine Gastroenterology
DX: K51.90 Ulcerative colitis, unspecified, without complications (principal); Z51.81 Encounter for therapeutic drug level monitoring; Z79.1 Long term (current) use of non-steroidal anti-inflammatories (NSAID)

== ENCOUNTER → 2018-06-06 11:55 | Outpatient (CLI) | payer MEDICARE, OTHER ==
[2018-03-16 14:00] VITALS: BMI 25.6
[2018-06-06 13:11] LABS: BASOPHILS 0.8 % (0-2); EOSINOPHILS 0.5 % (0-7); HEMATOCRIT 34.4 % (36.0-48.0); HEMOGLOBIN 11.6 g/dL (12-16); IMMATURE GRANULOCYTES 0.3 % (0-5); LYMPHOCYTES 23.6 % (15-50); MCH 32.9 pg (26.0-34.0); MCHC 33.7 g/dL (31.0-37.0); MCV 97.5 fL (80.0-100.0); MEAN PLATELET VOLUME 9.4 fL (7.4-10.4); MONOCYTES 10.5 % (2-11); NEUTROPHILS 64.3 % (40-80); PLATELET COUNT 267 10x3/uL (130-400); RBC 3.53 10x6/uL (4.00-5.40); RDW 15.2 % (11.5-14.5)
== END | disposition home or self-care (01) ==
LOC: D.LAB 10:15
PROVIDERS: Internal Medicine Gastroenterology
DX: K51.90 Ulcerative colitis, unspecified, without complications (principal); Z51.81 Encounter for therapeutic drug level monitoring; Z79.899 Other long term (current) drug therapy

== ENCOUNTER → 2018-07-01 11:31 | Outpatient (CLI) | payer MEDICARE, OTHER ==
[2018-03-16 14:00] VITALS: BMI 25.6
[2018-07-01 12:00] LABS: BASOPHILS 1.3 % (0-2); EOSINOPHILS 0.3 % (0-7); HEMATOCRIT 33.6 % (36.0-48.0); HEMOGLOBIN 11.4 g/dL (12-16); IMMATURE GRANULOCYTES 0.3 % (0-5); LYMPHOCYTES 27.9 % (15-50); MCH 32.9 pg (26.0-34.0); MCHC 33.9 g/dL (31.0-37.0); MCV 96.8 fL (80.0-100.0); MONOCYTES 11.5 % (2-11); NEUTROPHILS 58.7 % (40-80); PLATELET COUNT 229 10x3/uL (130-400); RBC 3.47 10x6/uL (4.00-5.40); RDW 14.5 % (11.5-14.5); WBC 3.1 10x3/uL (4.8-10.8)
== END | disposition home or self-care (01) ==
LOC: D.LAB 10:15
PROVIDERS: Internal Medicine Gastroenterology
DX: K51.90 Ulcerative colitis, unspecified, without complications (principal); Z51.81 Encounter for therapeutic drug level monitoring; Z79.899 Other long term (current) drug therapy

== ENCOUNTER → 2018-08-03 14:07 | Outpatient (CLI) | payer MEDICARE, OTHER ==
[2018-03-16 14:00] VITALS: BMI 25.6
[2018-08-03 14:41] LABS: BASOPHILS 1.4 % (0-2); EOSINOPHILS 0.6 % (0-7); HEMOGLOBIN 11.7 g/dL (12-16); LYMPHOCYTES 32.1 % (15-50); MCH 33.2 pg (26.0-34.0); MCHC 34.4 g/dL (31.0-37.0); MCV 96.6 fL (80.0-100.0); MEAN PLATELET VOLUME 9.1 fL (7.4-10.4); MONOCYTES 10.1 % (2-11); NEUTROPHILS 55.8 % (40-80); PLATELET COUNT 223 10x3/uL (130-400); RBC 3.52 10x6/uL (4.00-5.40); RDW 13.7 % (11.5-14.5); WBC 3.6 10x3/uL (4.8-10.8)
== END | disposition home or self-care (01) ==
LOC: D.LAB 10:00
PROVIDERS: Internal Medicine Gastroenterology
DX: K51.90 Ulcerative colitis, unspecified, without complications (principal); Z51.81 Encounter for therapeutic drug level monitoring; Z79.899 Other long term (current) drug therapy

== ENCOUNTER → 2018-09-05 13:32 | Outpatient (CLI) | payer MEDICARE, OTHER ==
[2018-03-16 14:00] VITALS: BMI 25.6
[2018-09-05 13:56] LABS: BASOPHILS 1.9 % (0-2); EOSINOPHILS 0.8 % (0-7); HEMATOCRIT 35.2 % (36.0-48.0); HEMOGLOBIN 11.8 g/dL (12-16); LYMPHOCYTES 31.8 % (15-50); MCH 32.4 pg (26.0-34.0); MCHC 33.5 g/dL (31.0-37.0); MCV 96.7 fL (80.0-100.0); MEAN PLATELET VOLUME 9.3 fL (7.4-10.4); MONOCYTES 11.7 % (2-11); NEUTROPHILS 53.8 % (40-80); PLATELET COUNT 216 10x3/uL (130-400); RBC 3.64 10x6/uL (4.00-5.40); RDW 14.2 % (11.5-14.5); WBC 3.6 10x3/uL (4.8-10.8)
[2018-09-05 14:33] LABS: ALBUMIN 3.9 g/dL (3.4-5.0); ALKALINE PHOSPHATASE 131 U/L (46-116); ALT (SGPT) 21 U/L (10-68); BILIRUBIN - TOTAL 0.36 mg/dL (0.2-1.3); CALC OSMOLALITY 283 mosm/kg (275-300); CALCIUM 9.1 mg/dL (8.5-10.1); CARBON DIOXIDE 25.3 mmol/L (21.0-32.0); CHLORIDE - SERUM 102 mmol/L (98-107); CREATININE - SERUM 0.7 mg/dL (0.6-1.3); GLUCOSE 95 mg/dL (74-106); POTASSIUM - SERUM 4.4 mmol/L (3.5-5.1); PROTEIN - SERUM 6.7 g/dL (6.4-8.2); SODIUM 142 mmol/L (136-145); UREA NITROGEN 16 mg/dL (7-18); eGFR NON AFRICAN AMERICAN 86 mL/min (90-120)
== END | disposition home or self-care (01) ==
LOC: D.LAB 08:15
PROVIDERS: Internal Medicine Gastroenterology
DX: K51.90 Ulcerative colitis, unspecified, without complications (principal); Z51.81 Encounter for therapeutic drug level monitoring; Z79.899 Other long term (current) drug therapy

== ENCOUNTER → 2018-10-03 14:10 | Outpatient (CLI) | payer MEDICARE, OTHER ==
[2018-03-16 14:00] VITALS: BMI 25.6
[2018-10-03 14:54] LABS: EOSINOPHILS 1.3 % (0-7); HEMATOCRIT 34.8 % (36.0-48.0); HEMOGLOBIN 11.6 g/dL (12-16); IMMATURE GRANULOCYTES 0.3 % (0-5); LYMPHOCYTES 26.6 % (15-50); MCH 32.2 pg (26.0-34.0); MCHC 33.3 g/dL (31.0-37.0); MCV 96.7 fL (80.0-100.0); MEAN PLATELET VOLUME 9.1 fL (7.4-10.4); MONOCYTES 10.2 % (2-11); NEUTROPHILS 60.6 % (40-80); PLATELET COUNT 203 10x3/uL (130-400); RDW 14.4 % (11.5-14.5); WBC 3.8 10x3/uL (4.8-10.8)
[2018-10-03 15:31] LABS: ALBUMIN 3.9 g/dL (3.4-5.0); ALKALINE PHOSPHATASE 124 U/L (46-116); ALT (SGPT) 23 U/L (10-68); BILIRUBIN - TOTAL 0.42 mg/dL (0.2-1.3); CALC OSMOLALITY 272 mosm/kg (275-300); CALCIUM 9.4 mg/dL (8.5-10.1); CARBON DIOXIDE 29.7 mmol/L (21.0-32.0); CHLORIDE - SERUM 100 mmol/L (98-107); CREATININE - SERUM 0.7 mg/dL (0.6-1.3); GLUCOSE 95 mg/dL (74-106); POTASSIUM - SERUM 4.5 mmol/L (3.5-5.1); PROTEIN - SERUM 6.8 g/dL (6.4-8.2); SODIUM 136 mmol/L (136-145); UREA NITROGEN 16 mg/dL (7-18); eGFR NON AFRICAN AMERICAN 86 mL/min (90-120)
== END | disposition home or self-care (01) ==
LOC: D.LAB 08:15
PROVIDERS: ATTEND Internal Medicine Gastroenterology
DX: K51.90 Ulcerative colitis, unspecified, without complications (principal); Z51.81 Encounter for therapeutic drug level monitoring; Z79.899 Other long term (current) drug therapy

== ENCOUNTER → 2018-11-03 12:15 | Outpatient (CLI) | payer MEDICARE, OTHER ==
[2018-03-16 14:00] VITALS: BMI 25.6
[2018-11-03 13:23] LABS: BASOPHILS 1.4 % (0-2); EOSINOPHILS 2.5 % (0-7); HEMATOCRIT 34.3 % (36.0-48.0); HEMOGLOBIN 11.8 g/dL (12-16); LYMPHOCYTES 25.4 % (15-50); MCH 32.6 pg (26.0-34.0); MCHC 34.4 g/dL (31.0-37.0); MCV 94.8 fL (80.0-100.0); MONOCYTES 13.5 % (2-11); NEUTROPHILS 57.2 % (40-80); PLATELET COUNT 206 10x3/uL (130-400); RBC 3.62 10x6/uL (4.00-5.40); RDW 14.4 % (11.5-14.5); WBC 3.6 10x3/uL (4.8-10.8)
[2018-11-03 13:49] LABS: ALBUMIN 3.7 g/dL (3.4-5.0); ALKALINE PHOSPHATASE 125 U/L (46-116); ALT (SGPT) 27 U/L (10-68); BILIRUBIN - TOTAL 0.28 mg/dL (0.2-1.3); CALC OSMOLALITY 276 mosm/kg (275-300); CALCIUM 9.1 mg/dL (8.5-10.1); CARBON DIOXIDE 29.9 mmol/L (21.0-32.0); CHLORIDE - SERUM 104 mmol/L (98-107); CREATININE - SERUM 0.7 mg/dL (0.6-1.3); GLUCOSE 98 mg/dL (74-106); POTASSIUM - SERUM 4.8 mmol/L (3.5-5.1); PROTEIN - SERUM 6.4 g/dL (6.4-8.2); SODIUM 139 mmol/L (136-145); UREA NITROGEN 11 mg/dL (7-18); eGFR NON AFRICAN AMERICAN 86 mL/min (90-120)
== END | disposition home or self-care (01) ==
LOC: D.LAB 08:15
PROVIDERS: ATTEND Internal Medicine Gastroenterology
DX: K51.90 Ulcerative colitis, unspecified, without complications (principal); Z79.899 Other long term (current) drug therapy

== ENCOUNTER → 2018-12-06 13:17 | Outpatient (CLI) | payer MEDICARE, OTHER ==
[2018-03-16 14:00] VITALS: BMI 25.6
[2018-12-06 13:55] LABS: BASOPHILS 1.4 % (0-2); EOSINOPHILS 3.2 % (0-7); HEMATOCRIT 34.5 % (36.0-48.0); HEMOGLOBIN 11.7 g/dL (12-16); IMMATURE GRANULOCYTES 0.3 % (0-5); LYMPHOCYTES 25.8 % (15-50); MCH 32.5 pg (26.0-34.0); MCHC 33.9 g/dL (31.0-37.0); MCV 95.8 fL (80.0-100.0); MEAN PLATELET VOLUME 9.2 fL (7.4-10.4); NEUTROPHILS 56.3 % (40-80); PLATELET COUNT 213 10x3/uL (130-400); RDW 13.8 % (11.5-14.5); WBC 3.5 10x3/uL (4.8-10.8)
[2018-12-06 14:04] LABS: ALBUMIN 3.6 g/dL (3.4-5.0); ALKALINE PHOSPHATASE 108 U/L (46-116); ALT (SGPT) 22 U/L (10-68); BILIRUBIN - TOTAL 0.35 mg/dL (0.2-1.3); CALC OSMOLALITY 281 mosm/kg (275-300); CALCIUM 9.4 mg/dL (8.5-10.1); CARBON DIOXIDE 30.3 mmol/L (21.0-32.0); CHLORIDE - SERUM 104 mmol/L (98-107); CREATININE - SERUM 0.6 mg/dL (0.6-1.3); GLUCOSE 94 mg/dL (74-106); POTASSIUM - SERUM 4.7 mmol/L (3.5-5.1); PROTEIN - SERUM 6.7 g/dL (6.4-8.2); SODIUM 141 mmol/L (136-145); UREA NITROGEN 16 mg/dL (7-18); eGFR NON AFRICAN AMERICAN > 90 mL/min (90-120)
== END | disposition home or self-care (01) ==
LOC: D.LAB 12-05 08:15
PROVIDERS: ATTEND Internal Medicine Gastroenterology
DX: K51.90 Ulcerative colitis, unspecified, without complications (principal); Z51.81 Encounter for therapeutic drug level monitoring; Z79.899 Other long term (current) drug therapy

== ENCOUNTER → 2019-01-03 13:16 | Outpatient (CLI) | payer MEDICARE, OTHER ==
[2018-03-16 14:00] VITALS: BMI 25.6
[2019-01-03 13:53] LABS: HEMATOCRIT 35.3 % (36.0-48.0); LYMPHOCYTES 27.6 % (15-50); MCH 32.3 pg (26.0-34.0); MCV 95.1 fL (80.0-100.0); MEAN PLATELET VOLUME 9.4 fL (7.4-10.4); MONOCYTES 11.6 % (2-11); NEUTROPHILS 55.8 % (40-80); PLATELET COUNT 201 10x3/uL (130-400); RBC 3.71 10x6/uL (4.00-5.40); RDW 13.5 % (11.5-14.5)
[2019-01-03 14:14] LABS: ALKALINE PHOSPHATASE 116 U/L (46-116); ALT (SGPT) 28 U/L (10-68); CALC OSMOLALITY 272 mosm/kg (275-300); CALCIUM 9.4 mg/dL (8.5-10.1); CARBON DIOXIDE 28.4 mmol/L (21.0-32.0); CHLORIDE - SERUM 100 mmol/L (98-107); CREATININE - SERUM 0.6 mg/dL (0.6-1.3); GLUCOSE 93 mg/dL (74-106); POTASSIUM - SERUM 4.9 mmol/L (3.5-5.1); PROTEIN - SERUM 6.6 g/dL (6.4-8.2); SODIUM 136 mmol/L (136-145); UREA NITROGEN 15 mg/dL (7-18); eGFR NON AFRICAN AMERICAN > 90 mL/min (90-120)
== END | disposition home or self-care (01) ==
LOC: D.LAB 07-07 08:15
PROVIDERS: ATTEND Internal Medicine Gastroenterology
DX: K51.90 Ulcerative colitis, unspecified, without complications (principal); Z79.899 Other long term (current) drug therapy

== ENCOUNTER → 2019-02-02 13:58 | Outpatient (CLI) | payer MEDICARE, OTHER ==
[2018-03-16 14:00] VITALS: BMI 25.6
[2019-02-02 14:38] LABS: BASOPHILS 1.7 % (0-2); EOSINOPHILS 2.7 % (0-7); HEMATOCRIT 34.9 % (36.0-48.0); LYMPHOCYTES 22.2 % (15-50); MCH 32.5 pg (26.0-34.0); MCHC 34.4 g/dL (31.0-37.0); MCV 94.6 fL (80.0-100.0); MEAN PLATELET VOLUME 9.2 fL (7.4-10.4); MONOCYTES 15.4 % (2-11); PLATELET COUNT 223 10x3/uL (130-400); RBC 3.69 10x6/uL (4.00-5.40); RDW 14.2 % (11.5-14.5); WBC 4.1 10x3/uL (4.8-10.8)
[2019-02-02 14:47] LABS: ALKALINE PHOSPHATASE 119 U/L (46-116); ALT (SGPT) 21 U/L (10-68); CALC OSMOLALITY 273 mosm/kg (275-300); CALCIUM 9.4 mg/dL (8.5-10.1); CARBON DIOXIDE 32.4 mmol/L (21.0-32.0); CHLORIDE - SERUM 100 mmol/L (98-107); CREATININE - SERUM 0.7 mg/dL (0.6-1.3); GLUCOSE 95 mg/dL (74-106); POTASSIUM - SERUM 4.4 mmol/L (3.5-5.1); PROTEIN - SERUM 7.1 g/dL (6.4-8.2); SODIUM 136 mmol/L (136-145); UREA NITROGEN 18 mg/dL (7-18); eGFR NON AFRICAN AMERICAN 86 mL/min (90-120)
== END | disposition home or self-care (01) ==
LOC: D.LAB 08:15
PROVIDERS: ATTEND Internal Medicine Gastroenterology
DX: K51.90 Ulcerative colitis, unspecified, without complications (principal)

== ENCOUNTER → 2019-03-06 12:58 | Outpatient (CLI) | payer MEDICARE, OTHER ==
[2018-03-16 14:00] VITALS: BMI 25.6
[2019-03-06 13:18] LABS: BASOPHILS 0.8 % (0-2); EOSINOPHILS 2.5 % (0-7); HEMATOCRIT 33.4 % (36.0-48.0); HEMOGLOBIN 11.6 g/dL (12-16); LYMPHOCYTES 25.1 % (15-50); MCHC 34.7 g/dL (31.0-37.0); MCV 94.9 fL (80.0-100.0); MEAN PLATELET VOLUME 9.1 fL (7.4-10.4); MONOCYTES 13.7 % (2-11); NEUTROPHILS 57.9 % (40-80); PLATELET COUNT 181 10x3/uL (130-400); RBC 3.52 10x6/uL (4.00-5.40); RDW 14.3 % (11.5-14.5); WBC 3.6 10x3/uL (4.8-10.8)
[2019-03-06 13:45] LABS: ALBUMIN 3.8 g/dL (3.4-5.0); ALKALINE PHOSPHATASE 109 U/L (46-116); ALT (SGPT) 20 U/L (10-68); BILIRUBIN - TOTAL 0.38 mg/dL (0.2-1.3); CALC OSMOLALITY 278 mosm/kg (275-300); CARBON DIOXIDE 30.5 mmol/L (21.0-32.0); CHLORIDE - SERUM 103 mmol/L (98-107); CREATININE - SERUM 0.7 mg/dL (0.6-1.3); GLUCOSE 95 mg/dL (74-106); POTASSIUM - SERUM 4.2 mmol/L (3.5-5.1); PROTEIN - SERUM 6.5 g/dL (6.4-8.2); SODIUM 139 mmol/L (136-145); UREA NITROGEN 15 mg/dL (7-18); eGFR NON AFRICAN AMERICAN 85 mL/min (90-120)
== END | disposition home or self-care (01) ==
LOC: D.LAB 08:15
PROVIDERS: ATTEND Internal Medicine Gastroenterology
DX: K51.90 Ulcerative colitis, unspecified, without complications (principal); Z51.81 Encounter for therapeutic drug level monitoring; Z79.899 Other long term (current) drug therapy

== ENCOUNTER → 2019-04-05 13:54 | Outpatient (CLI) | payer MEDICARE, OTHER ==
[2018-03-16 14:00] VITALS: BMI 25.6
[2019-04-05 14:37] LABS: BASOPHILS 1.1 % (0-2); EOSINOPHILS 1.8 % (0-7); HEMATOCRIT 34.2 % (36.0-48.0); HEMOGLOBIN 11.9 g/dL (12-16); LYMPHOCYTES 24.3 % (15-50); MCHC 34.8 g/dL (31.0-37.0); MCV 94.7 fL (80.0-100.0); MEAN PLATELET VOLUME 8.9 fL (7.4-10.4); MONOCYTES 13.4 % (2-11); NEUTROPHILS 59.4 % (40-80); PLATELET COUNT 210 10x3/uL (130-400); RBC 3.61 10x6/uL (4.00-5.40); WBC 4.4 10x3/uL (4.8-10.8)
[2019-04-05 14:57] LABS: ALBUMIN 3.8 g/dL (3.4-5.0); ANION GAP 10.5 mmol/L (8-16); BILIRUBIN - TOTAL 0.44 mg/dL (0.2-1.3); CALCIUM 8.9 mg/dL (8.5-10.1); CARBON DIOXIDE 30.3 mmol/L (21.0-32.0); CREATININE - SERUM 0.8 mg/dL (0.6-1.3); POTASSIUM - SERUM 4.8 mmol/L (3.5-5.1); PROTEIN - SERUM 6.6 g/dL (6.4-8.2)
== END | disposition home or self-care (01) ==
LOC: D.LAB 08:15
PROVIDERS: ATTEND Internal Medicine Gastroenterology
DX: K51.90 Ulcerative colitis, unspecified, without complications (principal); Z79.899 Other long term (current) drug therapy

== ENCOUNTER → 2019-05-05 12:58 | Outpatient (CLI) | payer MEDICARE, OTHER ==
[2018-03-16 14:00] VITALS: BMI 25.6
[2019-05-05 13:27] LABS: BASOPHILS 1.3 % (0-2); EOSINOPHILS 2.3 % (0-7); HEMATOCRIT 35.7 % (36.0-48.0); HEMOGLOBIN 11.8 g/dL (12-16); IMMATURE GRANULOCYTES 0.3 % (0-5); LYMPHOCYTES 26.9 % (15-50); MCH 32.9 pg (26.0-34.0); MCHC 33.1 g/dL (31.0-37.0); MCV 99.4 fL (80.0-100.0); MEAN PLATELET VOLUME 9.1 fL (7.4-10.4); MONOCYTES 11.7 % (2-11); NEUTROPHILS 57.5 % (40-80); PLATELET COUNT 250 10x3/uL (130-400); RBC 3.59 10x6/uL (4.00-5.40); RDW 13.7 % (11.5-14.5); WBC 3.9 10x3/uL (4.8-10.8)
[2019-05-05 13:49] LABS: ALKALINE PHOSPHATASE 108 U/L (46-116); ALT (SGPT) 23 U/L (10-68); CALC OSMOLALITY 276 mosm/kg (275-300); CALCIUM 9.6 mg/dL (8.5-10.1); CHLORIDE - SERUM 100 mmol/L (98-107); CREATININE - SERUM 0.6 mg/dL (0.6-1.3); GLUCOSE 103 mg/dL (74-106); POTASSIUM - SERUM 4.6 mmol/L (3.5-5.1); PROTEIN - SERUM 6.7 g/dL (6.4-8.2); SODIUM 138 mmol/L (136-145); UREA NITROGEN 15 mg/dL (7-18); eGFR NON AFRICAN AMERICAN > 90 mL/min (90-120)
== END | disposition home or self-care (01) ==
LOC: D.LAB 08:15
PROVIDERS: ATTEND Internal Medicine Gastroenterology
DX: Z79.899 Other long term (current) drug therapy (principal); K51.90 Ulcerative colitis, unspecified, without complications

== ENCOUNTER → 2019-06-05 14:02 | Outpatient (CLI) | payer MEDICARE, OTHER ==
[2018-03-16 14:00] VITALS: BMI 25.6
[2019-06-05 14:21] LABS: BASOPHILS 1.1 % (0-2); EOSINOPHILS 1.6 % (0-7); HEMATOCRIT 35.2 % (36.0-48.0); LYMPHOCYTES 29.5 % (15-50); MCH 33.6 pg (26.0-34.0); MCHC 34.1 g/dL (31.0-37.0); MCV 98.6 fL (80.0-100.0); MEAN PLATELET VOLUME 9.2 fL (7.4-10.4); MONOCYTES 10.8 % (2-11); PLATELET COUNT 224 10x3/uL (130-400); RBC 3.57 10x6/uL (4.00-5.40); RDW 14.2 % (11.5-14.5); WBC 3.7 10x3/uL (4.8-10.8)
[2019-06-05 14:47] LABS: ALKALINE PHOSPHATASE 107 U/L (46-116); ALT (SGPT) 30 U/L (10-68); CALC OSMOLALITY 277 mosm/kg (275-300); CALCIUM 9.4 mg/dL (8.5-10.1); CARBON DIOXIDE 25.9 mmol/L (21.0-32.0); CHLORIDE - SERUM 103 mmol/L (98-107); CREATININE - SERUM 0.7 mg/dL (0.6-1.3); GLUCOSE 97 mg/dL (74-106); POTASSIUM - SERUM 4.2 mmol/L (3.5-5.1); PROTEIN - SERUM 6.9 g/dL (6.4-8.2); SODIUM 139 mmol/L (136-145); UREA NITROGEN 12 mg/dL (7-18); eGFR NON AFRICAN AMERICAN 85 mL/min (90-120)
== END | disposition home or self-care (01) ==
LOC: D.LAB 08:15
PROVIDERS: ATTEND Internal Medicine Gastroenterology
DX: K51.90 Ulcerative colitis, unspecified, without complications (principal); Z79.899 Other long term (current) drug therapy

== ENCOUNTER → 2019-07-07 13:42 | Outpatient (CLI) | payer MEDICARE, OTHER ==
[2018-03-16 14:00] VITALS: BMI 25.6
[2019-07-07 14:07] LABS: BASOPHILS 1.1 % (0-2); EOSINOPHILS 3.1 % (0-7); HEMOGLOBIN 11.4 g/dL (12-16); IMMATURE GRANULOCYTES 0.3 % (0-5); LYMPHOCYTES 21.9 % (15-50); MCH 33.4 pg (26.0-34.0); MCHC 33.5 g/dL (31.0-37.0); MCV 99.7 fL (80.0-100.0); MEAN PLATELET VOLUME 9.2 fL (7.4-10.4); MONOCYTES 10.5 % (2-11); NEUTROPHILS 63.1 % (40-80); PLATELET COUNT 216 10x3/uL (130-400); RBC 3.41 10x6/uL (4.00-5.40); RDW 14.1 % (11.5-14.5); WBC 3.5 10x3/uL (4.8-10.8)
[2019-07-07 14:27] LABS: ALBUMIN 3.9 g/dL (3.4-5.0); ANION GAP 11.6 mmol/L (8-16); BILIRUBIN - TOTAL 0.36 mg/dL (0.2-1.3); CALCIUM 9.3 mg/dL (8.5-10.1); CARBON DIOXIDE 28.6 mmol/L (21.0-32.0); POTASSIUM - SERUM 4.2 mmol/L (3.5-5.1); PROTEIN - SERUM 5.3 g/dL (6.4-8.2)
== END | disposition home or self-care (01) ==
LOC: D.LAB 08:15
PROVIDERS: ATTEND Internal Medicine Gastroenterology
DX: K51.90 Ulcerative colitis, unspecified, without complications (principal); Z79.899 Other long term (current) drug therapy

== ENCOUNTER → 2019-08-07 15:37 | Outpatient (CLI) | payer MEDICARE, OTHER ==
[2018-03-16 14:00] VITALS: BMI 25.6
[2019-08-07 15:55] LABS: EOSINOPHILS 4.2 % (0-7); HEMATOCRIT 34.7 % (36.0-48.0); HEMOGLOBIN 11.6 g/dL (12-16); LYMPHOCYTES 25.7 % (15-50); MCH 32.7 pg (26.0-34.0); MCHC 33.4 g/dL (31.0-37.0); MCV 97.7 fL (80.0-100.0); MEAN PLATELET VOLUME 9.1 fL (7.4-10.4); MONOCYTES 13.1 % (2-11); PLATELET COUNT 215 10x3/uL (130-400); RBC 3.55 10x6/uL (4.00-5.40); WBC 3.8 10x3/uL (4.8-10.8)
== END | disposition home or self-care (01) ==
LOC: D.LAB 15:37
PROVIDERS: ATTEND Internal Medicine Gastroenterology
DX: K51.90 Ulcerative colitis, unspecified, without complications (principal); Z79.899 Other long term (current) drug therapy

== ENCOUNTER → 2019-09-05 13:52 | Outpatient (CLI) | payer MEDICARE, OTHER ==
[2018-03-16 14:00] VITALS: BMI 25.6
[2019-09-05 14:17] LABS: BASOPHILS 1.2 % (0-2); EOSINOPHILS 3.2 % (0-7); HEMATOCRIT 34.7 % (36.0-48.0); HEMOGLOBIN 11.5 g/dL (12-16); IMMATURE GRANULOCYTES 0.3 % (0-5); LYMPHOCYTES 25.6 % (15-50); MCH 33.3 pg (26.0-34.0); MCHC 33.1 g/dL (31.0-37.0); MCV 100.6 fL (80.0-100.0); MEAN PLATELET VOLUME 9.2 fL (7.4-10.4); MONOCYTES 13.1 % (2-11); NEUTROPHILS 56.6 % (40-80); PLATELET COUNT 215 10x3/uL (130-400); RBC 3.45 10x6/uL (4.00-5.40); WBC 3.4 10x3/uL (4.8-10.8)
[2019-09-05 14:40] LABS: ANION GAP 10.6 mmol/L (8-16); BILIRUBIN - TOTAL 0.3 mg/dL (0.2-1.3); CALCIUM 8.7 mg/dL (8.5-10.1); CARBON DIOXIDE 30.3 mmol/L (21.0-32.0); CREATININE - SERUM 0.8 mg/dL (0.6-1.3); POTASSIUM - SERUM 3.9 mmol/L (3.5-5.1); PROTEIN - SERUM 6.5 g/dL (6.4-8.2)
== END | disposition home or self-care (01) ==
LOC: D.LAB 13:52
PROVIDERS: ATTEND Internal Medicine Gastroenterology
DX: K51.90 Ulcerative colitis, unspecified, without complications (principal); Z79.899 Other long term (current) drug therapy

== ENCOUNTER → 2019-11-06 13:15 | Outpatient (CLI) | payer MEDICARE, OTHER ==
[2018-03-16 14:00] VITALS: BMI 25.6
[2019-11-06 13:38] LABS: BASOPHILS 1.2 % (0-2); EOSINOPHILS 2.6 % (0-7); HEMOGLOBIN 11.4 g/dL (12-16); LYMPHOCYTES 21.7 % (15-50); MCH 32.9 pg (26.0-34.0); MCHC 32.6 g/dL (31.0-37.0); MCV 101.2 fL (80.0-100.0); MONOCYTES 11.9 % (2-11); NEUTROPHILS 62.6 % (40-80); PLATELET COUNT 240 10x3/uL (130-400); RBC 3.46 10x6/uL (4.00-5.40); RDW 14.2 % (11.5-14.5); WBC 3.5 10x3/uL (4.8-10.8)
== END | disposition home or self-care (01) ==
LOC: D.LAB 13:15
PROVIDERS: ATTEND Internal Medicine Gastroenterology
DX: K51.90 Ulcerative colitis, unspecified, without complications (principal); Z79.899 Other long term (current) drug therapy

== ENCOUNTER → 2019-12-05 12:19 | Outpatient (CLI) | payer MEDICARE, OTHER ==
[2018-03-16 14:00] VITALS: BMI 25.6
[2019-12-05 12:43] LABS: BASOPHILS 1.5 % (0-2); HEMATOCRIT 33.1 % (36.0-48.0); HEMOGLOBIN 11.2 g/dL (12-16); IMMATURE GRANULOCYTES 0.3 % (0-5); LYMPHOCYTES 19.8 % (15-50); MCH 33.6 pg (26.0-34.0); MCHC 33.8 g/dL (31.0-37.0); MCV 99.4 fL (80.0-100.0); MEAN PLATELET VOLUME 8.9 fL (7.4-10.4); MONOCYTES 14.8 % (2-11); NEUTROPHILS 60.6 % (40-80); PLATELET COUNT 226 10x3/uL (130-400); RBC 3.33 10x6/uL (4.00-5.40); RDW 14.5 % (11.5-14.5); WBC 3.4 10x3/uL (4.8-10.8)
== END | disposition home or self-care (01) ==
LOC: D.LAB 12:19
PROVIDERS: ATTEND Internal Medicine Gastroenterology
DX: K51.90 Ulcerative colitis, unspecified, without complications (principal); Z79.899 Other long term (current) drug therapy

== ENCOUNTER → 2020-01-04 14:06 | Outpatient (CLI) | payer MEDICARE, OTHER ==
[2018-03-16 14:00] VITALS: BMI 25.6
[2020-01-04 14:29] LABS: BASOPHILS 0.9 % (0-2); EOSINOPHILS 2.5 % (0-7); HEMOGLOBIN 11.7 g/dL (12-16); IMMATURE GRANULOCYTES 0.3 % (0-5); LYMPHOCYTES 20.3 % (15-50); MCHC 33.4 g/dL (31.0-37.0); MCV 98.6 fL (80.0-100.0); MEAN PLATELET VOLUME 8.9 fL (7.4-10.4); MONOCYTES 18.5 % (2-11); NEUTROPHILS 57.5 % (40-80); PLATELET COUNT 202 10x3/uL (130-400); RBC 3.55 10x6/uL (4.00-5.40); WBC 3.3 10x3/uL (4.8-10.8)
[2020-01-04 14:49] LABS: BILIRUBIN - TOTAL 0.45 mg/dL (0.2-1.3); CALCIUM 9.2 mg/dL (8.5-10.1); CARBON DIOXIDE 29.3 mmol/L (21.0-32.0); POTASSIUM - SERUM 4.3 mmol/L (3.5-5.1)
== END | disposition home or self-care (01) ==
LOC: D.LAB 14:06
PROVIDERS: ATTEND Family Medicine
DX: K51.90 Ulcerative colitis, unspecified, without complications (principal); Z79.899 Other long term (current) drug therapy

== ENCOUNTER → 2020-02-05 14:37 | Outpatient (CLI) | payer MEDICARE, OTHER ==
[2018-03-16 14:00] VITALS: BMI 25.6
[2020-02-05 15:14] LABS: BASOPHILS 1.6 % (0-2); EOSINOPHILS 2.6 % (0-7); HEMOGLOBIN 11.8 g/dL (12-16); LYMPHOCYTES 24.9 % (15-50); MCH 33.3 pg (26.0-34.0); MCHC 33.7 g/dL (31.0-37.0); MCV 98.9 fL (80.0-100.0); MONOCYTES 16.3 % (2-11); NEUTROPHILS 54.6 % (40-80); PLATELET COUNT 228 10x3/uL (130-400); RBC 3.54 10x6/uL (4.00-5.40); RDW 14.5 % (11.5-14.5); WBC 3.1 10x3/uL (4.8-10.8)
== END | disposition home or self-care (01) ==
LOC: D.LAB 14:37
PROVIDERS: ATTEND Internal Medicine Gastroenterology
DX: K51.90 Ulcerative colitis, unspecified, without complications (principal); Z79.899 Other long term (current) drug therapy

== ENCOUNTER → 2020-03-05 12:35 | Outpatient (CLI) | payer MEDICARE, OTHER ==
[2018-03-16 14:00] VITALS: BMI 25.6
[2020-03-05 13:04] LABS: BASOPHILS 1.3 % (0-2); EOSINOPHILS 3.3 % (0-7); HEMATOCRIT 35.1 % (36.0-48.0); HEMOGLOBIN 11.7 g/dL (12-16); IMMATURE GRANULOCYTES 0.3 % (0-5); LYMPHOCYTES 18.7 % (15-50); MCH 33.1 pg (26.0-34.0); MCHC 33.3 g/dL (31.0-37.0); MCV 99.4 fL (80.0-100.0); MEAN PLATELET VOLUME 8.9 fL (7.4-10.4); MONOCYTES 16.7 % (2-11); NEUTROPHILS 59.7 % (40-80); PLATELET COUNT 200 10x3/uL (130-400); RBC 3.53 10x6/uL (4.00-5.40); RDW 14.2 % (11.5-14.5); WBC 3.1 10x3/uL (4.8-10.8)
== END | disposition home or self-care (01) ==
LOC: D.LAB 12:35
PROVIDERS: ATTEND Internal Medicine Gastroenterology
DX: K51.90 Ulcerative colitis, unspecified, without complications (principal); Z79.899 Other long term (current) drug therapy

== ENCOUNTER → 2020-04-08 13:56 | Outpatient (CLI) | payer MEDICARE, OTHER ==
[2018-03-16 14:00] VITALS: BMI 25.6
[2020-04-08 14:30] LABS: BASOPHILS 1.2 % (0-2); EOSINOPHILS 1.5 % (0-7); HEMATOCRIT 34.5 % (36.0-48.0); HEMOGLOBIN 11.6 g/dL (12-16); LYMPHOCYTES 20.6 % (15-50); MCH 33.5 pg (26.0-34.0); MCHC 33.6 g/dL (31.0-37.0); MCV 99.7 fL (80.0-100.0); MONOCYTES 13.6 % (2-11); NEUTROPHILS 63.1 % (40-80); PLATELET COUNT 220 10x3/uL (130-400); RBC 3.46 10x6/uL (4.00-5.40); RDW 13.8 % (11.5-14.5); WBC 3.3 10x3/uL (4.8-10.8)
[2020-04-08 14:40] LABS: ALBUMIN 3.9 g/dL (3.4-5.0); BILIRUBIN - TOTAL 0.36 mg/dL (0.2-1.3); CALCIUM 9.3 mg/dL (8.5-10.1); CARBON DIOXIDE 30.6 mmol/L (21.0-32.0); CREATININE - SERUM 0.8 mg/dL (0.6-1.3); POTASSIUM - SERUM 4.6 mmol/L (3.5-5.1); PROTEIN - SERUM 6.6 g/dL (6.4-8.2)
== END | disposition home or self-care (01) ==
LOC: D.LAB 13:56
PROVIDERS: ATTEND Internal Medicine Gastroenterology
DX: K51.90 Ulcerative colitis, unspecified, without complications (principal); Z79.899 Other long term (current) drug therapy

== ENCOUNTER → 2020-10-04 13:17 | Outpatient (CLI) | payer MEDICARE, OTHER ==
[2018-03-16 14:00] VITALS: BMI 25.6
[2020-10-04 13:56] LABS: ALKALINE PHOSPHATASE 106 U/L (30-120); ALT (SGPT) 25 U/L (10-68); BILIRUBIN - TOTAL 0.34 mg/dL (0.2-1.3); CALC OSMOLALITY 277 mosm/kg (275-300); CALCIUM 9.9 mg/dL (8.5-10.1); CARBON DIOXIDE 30.8 mmol/L (21.0-32.0); CHLORIDE - SERUM 102 mmol/L (98-107); CREATININE - SERUM 0.7 mg/dL (0.6-1.3); GLUCOSE 114 mg/dL (74-106); POTASSIUM - SERUM 3.8 mmol/L (3.5-5.1); PROTEIN - SERUM 6.9 g/dL (6.4-8.2); SODIUM 138 mmol/L (136-145); UREA NITROGEN 15 mg/dL (7-18); eGFR NON AFRICAN AMERICAN 85 mL/min (90-120)
[2020-10-04 14:01] LABS: HEMATOCRIT 35.1 % (36.0-48.0); HEMOGLOBIN 11.9 g/dL (12-16); LYMPHOCYTE ABS# 0.62 10x3/uL (1.18-3.74); MCH 33.4 pg (26.0-34.0); MCHC 33.9 g/dL (31.0-37.0); MCV 98.6 fL (80.0-100.0); NEUTROPHIL ABS# 1.78 10x3/uL (1.56-6.13); PLATELET COUNT 232 10x3/uL (130-400); RBC 3.56 10x6/uL (4.00-5.40); RDW 13.6 % (11.5-14.5); WBC 2.9 10x3/uL (4.8-10.8)
[2020-10-04 15:08] LABS: EOSINOPHILS 4 % (0-7); LYMPHOCYTES 21 % (15-50); MONOCYTES 16 % (2-11); NEUTROPHILS 59 % (40-80); PLATELET ESTIMATE NORMAL
== END | disposition home or self-care (01) ==
LOC: D.LAB 13:17
PROVIDERS: ATTEND Internal Medicine Gastroenterology
DX: K51.90 Ulcerative colitis, unspecified, without complications (principal); Z79.899 Other long term (current) drug therapy

== ENCOUNTER → 2020-11-08 14:04 | Outpatient (CLI) | payer MEDICARE, OTHER ==
[2018-03-16 14:00] VITALS: BMI 25.6
[2020-11-08 14:33] LABS: BASOPHILS 0.4 % (0-2); HEMATOCRIT 32.7 % (36.0-48.0); IMMATURE GRANULOCYTES 0.2 % (0-5); LYMPHOCYTES 12.3 % (15-50); MCH 33.1 pg (26.0-34.0); MCHC 33.6 g/dL (31.0-37.0); MCV 98.5 fL (80.0-100.0); MEAN PLATELET VOLUME 9.1 fL (7.4-10.4); MONOCYTES 10.2 % (2-11); NEUTROPHIL ABS# 3.71 10x3/uL (1.56-6.13); NEUTROPHILS 75.9 % (40-80); PLATELET COUNT 228 10x3/uL (130-400); RBC 3.32 10x6/uL (4.00-5.40); RDW 13.7 % (11.5-14.5); WBC 4.9 10x3/uL (4.8-10.8)
== END | disposition home or self-care (01) ==
LOC: D.LAB 14:04
PROVIDERS: ATTEND Internal Medicine Gastroenterology
DX: Z79.899 Other long term (current) drug therapy (principal)

== ENCOUNTER → 2020-12-06 14:18 | Outpatient (CLI) | payer MEDICARE, OTHER ==
[2018-03-16 14:00] VITALS: BMI 25.6
[2020-12-06 14:40] LABS: BASOPHILS 1.4 % (0-2); EOSINOPHILS 2.5 % (0-7); HEMOGLOBIN 11.4 g/dL (12-16); LYMPHOCYTES 16.1 % (15-50); MCHC 34.6 g/dL (31.0-37.0); MCV 98.3 fL (80.0-100.0); MEAN PLATELET VOLUME 6.7 fL (7.4-10.4); MONOCYTES 14.5 % (2-11); NEUTROPHILS 65.5 % (40-80); PLATELET COUNT 265 10x3/uL (130-400); RBC 3.35 10x6/uL (4.00-5.40); RDW 14.2 % (11.5-14.5); WBC 3.6 10x3/uL (4.8-10.8)
== END | disposition home or self-care (01) ==
LOC: D.LAB 14:18
PROVIDERS: ATTEND Internal Medicine Gastroenterology
DX: K51.90 Ulcerative colitis, unspecified, without complications (principal); Z79.01 Long term (current) use of anticoagulants

== ENCOUNTER → 2021-01-03 14:58 | Outpatient (CLI) | payer MEDICARE, OTHER ==
[2018-03-16 14:00] VITALS: BMI 25.6
[2021-01-03 15:51] LABS: ANION GAP 9.6 mmol/L (8-16); BILIRUBIN - TOTAL 0.41 mg/dL (0.2-1.3); CALCIUM 9.6 mg/dL (8.5-10.1); CARBON DIOXIDE 30.6 mmol/L (21.0-32.0); CREATININE - SERUM 0.8 mg/dL (0.6-1.3); POTASSIUM - SERUM 4.2 mmol/L (3.5-5.1)
[2021-01-03 15:52] LABS: BASOPHILS 1.7 % (0-2); HEMATOCRIT 32.8 % (36.0-48.0); HEMOGLOBIN 11.3 g/dL (12-16); LYMPHOCYTES 16.1 % (15-50); MCH 33.8 pg (26.0-34.0); MCHC 34.3 g/dL (31.0-37.0); MCV 98.7 fL (80.0-100.0); MEAN PLATELET VOLUME 7.2 fL (7.4-10.4); MONOCYTES 12.2 % (2-11); PLATELET COUNT 257 10x3/uL (130-400); RBC 3.33 10x6/uL (4.00-5.40); RDW 15.1 % (11.5-14.5); WBC 3.1 10x3/uL (4.8-10.8)
== END | disposition home or self-care (01) ==
LOC: D.LAB 14:58
PROVIDERS: ATTEND Internal Medicine Gastroenterology
DX: K51.90 Ulcerative colitis, unspecified, without complications (principal); Z79.899 Other long term (current) drug therapy